=== PATIENT | male | born 1960 | race Two or more races ===

== ENCOUNTER 2024-06-19 11:35 | Inpatient (IN) | payer OTHER ==
[~2024-06-19] VITALS: Ht 172.7 cm; Wt 67.1 kg
[2024-06-19 11:37] VITALS: O2SAT 100
[2024-06-19 12:21] LABS: BASOPHILS % 0.6 % (0.0-2.0); EOSINOPHILS % 0.1 % (0.0-5.0); HEMATOCRIT. 40.3 % (42.0-52.0); HEMOGLOBIN. 13.6 g/dL (14.0-18.0); LYMPHOCYTES % 15.6 % (20.0-50.0); MEAN CORPUSCULAR HEMOGLOBIN 32.7 pg (28.0-32.0); MEAN CORPUSCULAR HGB CONC 33.7 g/dL (31.0-37.0); MEAN CORPUSCULAR VOLUME 97.1 fL (80.0-94.0); MEAN PLATELET VOLUME 7.7 fl (7.4-10.4); MONOCYTES % 11.2 % (2.0-8.0); NEUTROPHILS % 72.5 % (40.0-76.0); PLATELET 237 x1000/uL (130-400); RED BLOOD CELL COUNT 4.15 mill/uL (4.7-6.1); RED CELL DISTRIBUTION WIDTH 15.3 % (11.6-14.6); WHITE BLOOD COUNT 9.6 x1000/uL (4.5-11.0)
[2024-06-19 12:30] LABS: CALCIUM 9.3 mg/dL (8.7-10.4); POTASSIUM 3.7 mEq/L (3.5-5.1)
[2024-06-19] MEDS ORDERED: LORAZEPAM 2MG/ML INJ IV ONE (12:30)
[2024-06-19 12:36] LABS: CREATININE 1.8 mg/dL (0.6-1.3)
[2024-06-19] MEDS: SODIUM CHLORIDE 0.9% 1,000 ML IV ONE (13:37)
[2024-06-19] MEDS: LORAZEPAM 2MG/ML UD SYRINGE IV NR (13:38)
[2024-06-19] MEDS ORDERED: ACETAMINOPHEN 325MG TABLET PO PRN (15:00)
[2024-06-19] MEDS ORDERED: ONDANSETRON HCL 4MG/2ML INJ IV PRN (15:00)
[2024-06-19] MEDS ORDERED: DOCUSATE SODIUM 100MG CAPSULE PO PRN (15:00)
[2024-06-19] MEDS ORDERED: LORAZEPAM 0.5MG TABLET PO PRN (15:00)
[2024-06-19] MEDS ORDERED: DEXTROSE 50% WATER 50ML SYRINGE IV PRN ×2 (15:00)
[2024-06-19] MEDS ORDERED: IPRATROPIUM/ALBUTEROL 0.5-3(2.5)MG/3ML NEB HHN PRN (15:00)
[2024-06-19] MEDS ORDERED: GUAIFENESIN 200MG/10ML SUGAR FREE UDC PO PRN (15:00)
[2024-06-19] MEDS ORDERED: CLONIDINE 0.1MG TABLET PO PRN (15:00)
[2024-06-19 16:11] LABS: TROPONIN I HIGH SENSITIVITY 277 ng/L (3.0-53)
[2024-06-19] MEDS: MVI, ADULT NO.1 10 ML, FOLIC ACID 1 MG, THIAMINE HCL 100 MG in SODIUM CHLORIDE 0.9% 1,0... IV SCH (16:32)
[2024-06-19 16:35] LABS: PHOSPHORUS 1.1 mg/dL (2.5-4.9)
[2024-06-19 16:36] LABS: BETA HYDROXYBUTYRATE 2.9 mMol/L (0.0-0.3)
[2024-06-19] MEDS: BLOOD SUGAR DIAGNOSTIC STRIP TEST SCH (17:00)
[2024-06-19 17:42] LABS: LACTIC ACID 5.9 mmol/L (0.4-2.0)
[2024-06-19] MEDS: LORAZEPAM 2MG/ML UD SYRINGE IV SCH (17:55)
[2024-06-19] MEDS ORDERED: DILTIAZEM HCL 5MG/ML 5ML VIAL IV NR (18:00)
[2024-06-19] MEDS: MAGNESIUM 4 G PREMIX 100 ML IV NR (18:35)
[2024-06-19 18:55] LABS: BG BASE EXCESS -3.5 mmol/L (-2.0-3.0); BG CARBOXYHEMOGLOBIN 0.4 % (0.5-1.5); BG DEOXYHEMOGLOBIN 1.8 % (0.0-5.0); BG FRACTION INSPIRED OXYGEN 21; BG HCO3 ACT 17.4 mmol/L (21.0-28.0); BG METHEMOGLOBIN 0.2 % (0.5-1.5); BG OXYGEN SATURATION 98.2 % (94.0-98.0); BG OXYHEMOGLOBIN 97.6 % (94.0-98.0); BG PCO2 21.3 mmHg (35.0-48.0); BG PH 7.529 (7.350-7.450); BG PO2 110.9 mmHg (83.0-108.0); BG SAMPLE SITE RIGHT BRACHIAL; BG VENT MODE ROOM AIR
[2024-06-19 19:03] LABS: CLARITY URINE CLEAR (CLEAR); COLOR URINE YELLOW (YELLOW); GLUCOSE URINE 3+ (NEGATIVE); KETONES URINE 2+ (NEGATIVE); LEUKOCYTE ESTERASE URINE NEGATIVE (NEGATIVE); NITRITE URINE NEGATIVE (NEGATIVE); OCCULT BLOOD URINE 2+ (NEGATIVE); PROTEIN URINE 2+ (NEGATIVE); SPECIFIC GRAVITY URINE 1.028 (1.005-1.030); UROBILINOGEN URINE 0.2 E.U./dL (0.2-1.0)
[2024-06-19 19:18] LABS: BACTERIA URINE 1+; SQUAMOUS EPITHELIAL CELL URINE FEW /lpf (RARE/1+)
[2024-06-19 19:19] LABS: WBC URINE 0-2 /hpf (0-2)
[2024-06-19 19:20] LABS: *AMPHETAMINES SCREEN URINE NEGATIVE (NEGATIVE); *BARBITURATES SCREEN URINE NEGATIVE (NEGATIVE); *BENZODIAZEPINES SCREEN URINE NEGATIVE (NEGATIVE); *COCAINE SCREEN URINE NEGATIVE (NEGATIVE); METHADONE URINE SCREEN NEGATIVE (NEGATIVE)
[2024-06-19 19:21] LABS: CANNABINOID URINE SCREEN NEGATIVE (NEGATIVE); ECSTASY MDMA SCREEN URINE NEGATIVE (NEGATIVE); OPIATES URINE SCREEN NEGATIVE (NEGATIVE); PHENCYCLIDINE URINE SCREEN NEGATIVE (NEGATIVE)
[2024-06-19 19:31] LABS: ALANINE AMINOTRANSFERASE 44 IU/L (10-49); ALBUMIN 3.8 g/dL (3.2-4.8); ASPARTATE AMINOTRANSFERASE 52 IU/L (<34); BILIRUBIN DIRECT 0.2 mg/dL (<=3.0)
[2024-06-19 19:32] LABS: BILIRUBIN TOTAL 0.6 mg/dL (0.1-1.0); PROTEIN TOTAL 6.2 g/dL (6.0-8.3)
[2024-06-19 20:00] VITALS: BP 159/82; PULSE 126; RESP 20; TEMP 36.8; O2SAT 100
[2024-06-19] MEDS ORDERED: POTASSIUM PHOSPHATE 30 MMOL in DEXT 5% WATER 490 ML IV NR (20:00)
[2024-06-19 20:25] VITALS: BP 159/82; PULSE 126; RESP 20; TEMP 36.8
[2024-06-19] MEDS: FAMOTIDINE 20MG TABLET PO SCH (21:43)
[2024-06-19] MEDS: ENOXAPARIN 40MG/0.4ML SYR SUBCUT SCH (21:44)
[2024-06-19] MEDS: SODIUM CHLORIDE 0.9% 1,000 ML IV SCH (21:45)
[2024-06-19] MEDS: INSULIN LISPRO 100 UNITS/ML SUBCUT SCH (22:02)
[2024-06-19 23:33] LABS: CREATINE KINASE 539 IU/L (46-171)
[2024-06-20] VITALS: BP 144/80; PULSE 108; RESP 20; TEMP 36.9; O2SAT 100
[2024-06-20 04:00] VITALS: BP 138/82; PULSE 100; RESP 20; TEMP 36.8; O2SAT 100
[2024-06-20] MEDS: POTASSIUM PHOSPHATE 30 MMOL in DEXT 5% WATER 490 ML IV NR (04:36)
[2024-06-20] MEDS: ACETAMINOPHEN 325MG TABLET PO PRN (06:09)
[2024-06-20 07:28] LABS: BASOPHILS % 0.4 % (0.0-2.0); CALCIUM 7.7 mg/dL (8.7-10.4); EOSINOPHILS % 2.3 % (0.0-5.0); HEMATOCRIT. 28.8 % (42.0-52.0); HEMOGLOBIN. 9.9 g/dL (14.0-18.0); MEAN CORPUSCULAR HEMOGLOBIN 32.7 pg (28.0-32.0); MEAN CORPUSCULAR HGB CONC 34.4 g/dL (31.0-37.0); MEAN CORPUSCULAR VOLUME 95.1 fL (80.0-94.0); MONOCYTES % 10.6 % (2.0-8.0); NEUTROPHILS % 47.7 % (40.0-76.0); PLATELET 113 x1000/uL (130-400); POTASSIUM 3.3 mEq/L (3.5-5.1); RED BLOOD CELL COUNT 3.02 mill/uL (4.7-6.1); RED CELL DISTRIBUTION WIDTH 15.6 % (11.6-14.6); WHITE BLOOD COUNT 3.5 x1000/uL (4.5-11.0)
[2024-06-20 07:33] LABS: CREATININE 1.3 mg/dL (0.6-1.3)
[2024-06-20 08:00] VITALS: BP 154/87; PULSE 93; RESP 17; TEMP 35.9; O2SAT 99
[2024-06-20 09:25] LABS: HEPATITIS B SURFACE ANTIGEN NEGATIVE (Negative)
[2024-06-20] MEDS: ASPIRIN 81MG TABLET PO SCH (09:44)
[2024-06-20] MEDS: LISINOPRIL 10MG TABLET PO SCH (09:44)
[2024-06-20 09:47] LABS: HEPATITIS C AB NON REACTIVE (Neg) (Negative)
[2024-06-20] MEDS: IBUPROFEN 600MG TABLET PO PRN (13:20)
[2024-06-20 16:00] VITALS: BP 129/71; PULSE 83; RESP 18; TEMP 35.8; O2SAT 99
[2024-06-20 20:00] VITALS: BP 124/74; PULSE 99; RESP 19; TEMP 36.8; O2SAT 98
[2024-06-20 23:59] VITALS: BP 111/69; PULSE 96; RESP 18; TEMP 36.3; O2SAT 98
[2024-06-21 03:48] VITALS: BP 151/80; PULSE 83; RESP 18; TEMP 36.4; O2SAT 97
[2024-06-21 07:29] LABS: BASOPHILS % 0.4 % (0.0-2.0); EOSINOPHILS % 1.8 % (0.0-5.0); HEMATOCRIT. 31.7 % (42.0-52.0); HEMOGLOBIN. 10.9 g/dL (14.0-18.0); LYMPHOCYTES % 33.5 % (20.0-50.0); MEAN CORPUSCULAR HGB CONC 34.5 g/dL (31.0-37.0); MEAN CORPUSCULAR VOLUME 95.5 fL (80.0-94.0); MEAN PLATELET VOLUME 7.8 fl (7.4-10.4); NEUTROPHILS % 56.3 % (40.0-76.0); PLATELET 101 x1000/uL (130-400); RED BLOOD CELL COUNT 3.32 mill/uL (4.7-6.1); RED CELL DISTRIBUTION WIDTH 15.1 % (11.6-14.6); WHITE BLOOD COUNT 3.5 x1000/uL (4.5-11.0)
[2024-06-21 08:00] VITALS: BP 161/117; PULSE 89; RESP 20; TEMP 35.7; O2SAT 99
[2024-06-21 08:22] LABS: CHLORIDE 100 mEq/L (98-107); POTASSIUM 3.6 mEq/L (3.5-5.1); SODIUM 138 mEq/L (136-145)
[2024-06-21 08:23] LABS: CALCIUM 8.1 mg/dL (8.7-10.4); CARBON DIOXIDE 29 mEq/L (21-32)
[2024-06-21 08:28] LABS: CREATININE 1.1 mg/dL (0.6-1.3); GLUCOSE 160 mg/dL (70-105); UREA NITROGEN BLOOD 16 mg/dL (9-23)
[2024-06-21 08:53] VITALS: BP 153/89; PULSE 89; TEMP 96.3
== END 2024-06-21 14:00 | disposition home or self-care (01) | DRG 637 ==
LOC: ER 11:35 → EDBEDREQTM 13:42 → EDBEDREQ 13:42 → 7WST 20:25
PROVIDERS: ADMIT Internal Medicine; ATTEND Internal Medicine
DX: E11.10 Type 2 diabetes mellitus with ketoacidosis without coma (principal); I21.A1 Myocardial infarction type 2; N17.0 Acute kidney failure with tubular necrosis; E87.1 Hypo-osmolality and hyponatremia; R45.851 Suicidal ideations; R07.89 Other chest pain; Z20.822 Contact with and (suspected) exposure to COVID-19; E83.42 Hypomagnesemia; E83.39 Other disorders of phosphorus metabolism; E11.65 Type 2 diabetes mellitus with hyperglycemia; F10.129 Alcohol abuse with intoxication, unspecified; Y90.6 Blood alcohol level of 120-199 mg/100 ml; E78.5 Hyperlipidemia, unspecified; F17.210 Nicotine dependence, cigarettes, uncomplicated; I10 Essential (primary) hypertension; I25.10 Atherosclerotic heart disease of native coronary artery without angina pectoris; Z79.4 Long term (current) use of insulin; R25.1 Tremor, unspecified
CPT/HCPCS: 36415; 36600; 71045; 80048; 80076; 80305; 80320; 81003; 82010; 82375; 82550; 82805; 82962; 83036; 83605; 83735; 83880; 83930; 84100; 84145; 84484; 85025; 86705; 87340; 87426; 93005; 97162; 97166; 99285; A4606; J1650; J1815; J2060; J3411; J3475; J3490; J7030; J7060; G0480

== ENCOUNTER 2024-06-25 21:55 | Inpatient (IN) | payer OTHER ==
[~2024-06-25] VITALS: Ht 167.6 cm; Wt 60.4 kg
[2024-06-25 23:58] LABS: BASOPHILS % 0.8 % (0.0-2.0); EOSINOPHILS % 0.3 % (0.0-5.0); HEMATOCRIT. 39.2 % (42.0-52.0); HEMOGLOBIN. 13.2 g/dL (14.0-18.0); LYMPHOCYTES % 29.9 % (20.0-50.0); MEAN CORPUSCULAR HEMOGLOBIN 32.8 pg (28.0-32.0); MEAN CORPUSCULAR HGB CONC 33.8 g/dL (31.0-37.0); MEAN PLATELET VOLUME 7.6 fl (7.4-10.4); MONOCYTES % 9.2 % (2.0-8.0); NEUTROPHILS % 59.8 % (40.0-76.0); PLATELET 197 x1000/uL (130-400); RED BLOOD CELL COUNT 4.04 mill/uL (4.7-6.1); RED CELL DISTRIBUTION WIDTH 15.7 % (11.6-14.6); WHITE BLOOD COUNT 6.8 x1000/uL (4.5-11.0)
[2024-06-26 00:10] LABS: CHLORIDE 99 mEq/L (98-107); POTASSIUM 3.6 mEq/L (3.5-5.1); SODIUM 142 mEq/L (136-145)
[2024-06-26 00:11] LABS: CARBON DIOXIDE 25 mEq/L (21-32)
[2024-06-26 00:16] LABS: CREATININE 1.1 mg/dL (0.6-1.3); GLUCOSE 174 mg/dL (70-105)
[2024-06-26 00:17] LABS: UREA NITROGEN BLOOD 16 mg/dL (9-23)
[2024-06-26 00:18] LABS: ACETAMINOPHEN < 2 ug/mL (10-30)
[2024-06-26 00:26] LABS: ETHANOL BLOOD 331 mg/dL (<10)
[2024-06-26] MEDS: HALOPERIDOL LACTATE 5MG/ML VIAL IM ONE (01:41)
[2024-06-26] MEDS ORDERED: ACETAMINOPHEN 325MG TABLET PO PRN ×2 (02:00)
[2024-06-26] MEDS ORDERED: IPRATROPIUM/ALBUTEROL 0.5-3(2.5)MG/3ML NEB HHN PRN (02:00)
[2024-06-26] MEDS ORDERED: ENOXAPARIN 40MG/0.4ML SYR SUBCUT SCH (02:00)
[2024-06-26] MEDS ORDERED: DEXTROSE 50% WATER 50ML SYRINGE IV PRN (02:00)
[2024-06-26] MEDS ORDERED: LORAZEPAM 2MG/ML UD SYRINGE IV PRN (02:00)
[2024-06-26] MEDS ORDERED: GUAIFENESIN 200MG/10ML SUGAR FREE UDC PO PRN (02:00)
[2024-06-26] MEDS ORDERED: DOCUSATE SODIUM 100MG CAPSULE PO PRN (02:00)
[2024-06-26] MEDS: SODIUM CHLORIDE 0.9% 1,000 ML IV ONE (02:09)
[2024-06-26] MEDS: PANTOPRAZOLE 40MG DR TABLET PO ONE (03:10)
[2024-06-26] MEDS: MVI, ADULT NO.1 10 ML, FOLIC ACID 1 MG, THIAMINE HCL 100 MG in SODIUM CHLORIDE 0.9% 1,0... IV SCH (03:12)
[2024-06-26 04:00] VITALS: BP 157/87; PULSE 113; RESP 20; TEMP 36.5; O2SAT 100
[2024-06-26 04:15] VITALS: BP 157/87; PULSE 113; RESP 18; TEMP 36.5
[2024-06-26] MEDS ORDERED: LISI20TA31 (04:39)
[2024-06-26] MEDS ORDERED: METF-416 PO (04:39)
[2024-06-26] MEDS: CHLORDIAZEPOXIDE 25MG CAPSULE PO SCH (05:42)
[2024-06-26] MEDS: PANTOPRAZOLE SODIUM 40 MG/VIAL IV NR (05:42)
[2024-06-26 08:00] VITALS: BP 155/86; PULSE 101; RESP 20; TEMP 36.3; O2SAT 100
[2024-06-26] MEDS: INSULIN LISPRO 100 UNITS/ML SUBCUT SCH (08:30)
[2024-06-26] MEDS: HYDROCHLOROTHIAZIDE 25MG TABLET PO SCH (08:30)
[2024-06-26] MEDS: PANTOPRAZOLE 40MG DR TABLET PO SCH (08:31)
[2024-06-26] MEDS: LISINOPRIL 20MG TABLET PO SCH (08:31)
[2024-06-26] MEDS: BLOOD SUGAR DIAGNOSTIC STRIP TEST SCH (08:32)
[2024-06-26 08:43] LABS: CLARITY URINE CLEAR (CLEAR); COLOR URINE YELLOW (YELLOW); SPECIFIC GRAVITY URINE 1.024 (1.005-1.030)
[2024-06-26 08:44] LABS: GLUCOSE URINE 1+ (NEGATIVE); KETONES URINE 1+ (NEGATIVE); NITRITE URINE NEGATIVE (NEGATIVE); OCCULT BLOOD URINE 1+ (NEGATIVE); PH URINE 5.5 (4.5-8.0); PROTEIN URINE 2+ (NEGATIVE); UROBILINOGEN URINE 0.2 E.U./dL (0.2-1.0)
[2024-06-26 08:45] LABS: LEUKOCYTE ESTERASE URINE NEGATIVE (NEGATIVE)
[2024-06-26 08:50] LABS: *AMPHETAMINES SCREEN URINE NEGATIVE (NEGATIVE); *BARBITURATES SCREEN URINE NEGATIVE (NEGATIVE); *BENZODIAZEPINES SCREEN URINE NEGATIVE (NEGATIVE); *COCAINE SCREEN URINE NEGATIVE (NEGATIVE); CANNABINOID URINE SCREEN NEGATIVE (NEGATIVE); ECSTASY MDMA SCREEN URINE NEGATIVE (NEGATIVE); METHADONE URINE SCREEN NEGATIVE (NEGATIVE); OPIATES URINE SCREEN NEGATIVE (NEGATIVE); PHENCYCLIDINE URINE SCREEN NEGATIVE (NEGATIVE)
[2024-06-26 09:27] LABS: SQUAMOUS EPITHELIAL CELL URINE RARE /lpf (RARE/1+)
[2024-06-26 09:28] LABS: BACTERIA URINE TRACE; RBC URINE NONE SEEN /hpf (0-2); WBC URINE 0-2 /hpf (0-2)
[2024-06-26] MEDS: LORAZEPAM 1MG TABLET PO PRN (09:43)
[2024-06-26 09:53] LABS: ALANINE AMINOTRANSFERASE 53 IU/L (10-49); ALBUMIN 3.7 g/dL (3.2-4.8); ASPARTATE AMINOTRANSFERASE 48 IU/L (<34); BILIRUBIN DIRECT 0.2 mg/dL (<=3.0); BILIRUBIN TOTAL 0.7 mg/dL (0.1-1.0); PROTEIN TOTAL 6.2 g/dL (6.0-8.3)
[2024-06-26 12:00] VITALS: BP 150/84; PULSE 90; RESP 20; TEMP 36.2; O2SAT 100
[2024-06-26] MEDS ORDERED: FOLI-43 PO (12:22)
[2024-06-26] MEDS ORDERED: THIA100T72 PO (12:22)
[2024-06-26 13:59] VITALS: BP 150/84; PULSE 90; TEMP 97; O2SAT 100
[2024-06-26] MEDS: CLONIDINE 0.1MG TABLET PO PRN (15:35)
[2024-06-26 15:47] VITALS: BP 140/86; PULSE 99; RESP 18; TEMP 36.1; O2SAT 100
[2024-06-27] MEDS ORDERED: FOLIC ACID 1MG TABLET PO SCH (09:00)
[2024-06-27] MEDS ORDERED: MULTIVITAMINS,THER W-MINERALS TABLET PO SCH (09:00)
[2024-06-27] MEDS ORDERED: THIAMINE HCL 100MG TABLET PO SCH (09:00)
== END 2024-06-26 17:55 | disposition home or self-care (01) | DRG 93 ==
LOC: ER 21:55 → 7WST 06-26 01:56
PROVIDERS: ADMIT Hospitalist; ATTEND Hospitalist
DX: G92.9 Unspecified toxic encephalopathy (principal); F10.129 Alcohol abuse with intoxication, unspecified; I10 Essential (primary) hypertension; E11.9 Type 2 diabetes mellitus without complications; D53.9 Nutritional anemia, unspecified; M10.9 Gout, unspecified; F41.9 Anxiety disorder, unspecified; E78.5 Hyperlipidemia, unspecified; Y90.8 Blood alcohol level of 240 mg/100 ml or more; Z79.84 Long term (current) use of oral hypoglycemic drugs; Z79.899 Other long term (current) drug therapy
CPT/HCPCS: 36415; 80048; 80076; 80305; 80307; 80320; 80329; 81003; 82962; 83036; 85025; 99285; A4606; J1630; J1815; J2470; J3411; J3490; J7030; G0480